=== PATIENT | female | born 1990 | race African-American/Black ===

== ENCOUNTER 2023-03-28 00:35 | Inpatient (IN) | payer OTHER ==
[~2023-03-28] VITALS: Ht 165.1 cm; Wt 88.0 kg
[2023-03-28] MEDS ORDERED: TERBUTALINE SULFATE 1 MG/ML VIAL SUBCUT ONE (01:30)
[2023-03-28] MEDS ORDERED: NALBUPHINE HCL 10 MG/ML AMP IVP PRN (01:30)
[2023-03-28 01:32] VITALS: BP_SYST 136
[2023-03-28] MEDS: LR 1,000 ML IV SCH ×4 (01:40→18:43)
[2023-03-28 01:57] LABS: BASOPHILS % (AUTO) 0.2 % (0.0-2.0); EOSINOPHILS % (AUTO) 0.4 % (0.0-4.0); HEMATOCRIT 25.5 % (36-48); HEMOGLOBIN 8.3 g/dL (12.0-16.0); LYMPHOCYTES # (AUTO) 1.5 K/uL (1.0-5.5); LYMPHOCYTES % (AUTO) 19.6 % (20.5-51.5); MEAN CORPUSCULAR HEMOGLOBIN 26 pg (27-31); MEAN CORPUSCULAR HGB CONC 33 % (32-36); MEAN CORPUSCULAR VOLUME 81 fL (79.0-98.0); MONOCYTES # (AUTO) 0.7 K/uL (0.0-1.0); MONOCYTES % (AUTO) 8.7 % (1.7-9.3); NEUTROPHILS # (AUTO) 5.6 K/uL (1.8-7.7); NEUTROPHILS % (AUTO) 71.1 % (40.0-70.0); PLATELET COUNT (AUTO) 149 K/uL (130-430); RED BLOOD CELL COUNT(AUTO) 3.13 MIL/uL (4.2-6.2); RED CELL DISTRIBUTION WIDTH 16.1 % (9.0-15.0); WHITE BLOOD COUNT (AUTO) 7.8 K/uL (4.8-10.8)
[2023-03-28] MEDS ORDERED: OXYTOCIN 10 UNIT/ML VIAL IM ONE (02:15)
[2023-03-28] MEDS: MORPHINE SULFATE 10 MG/ML VIAL IVP PRN ×3 (02:49→15:33)
[2023-03-28] MEDS: OXYTOCIN/0.9 % SODIUM CHLORIDE 1,000 ML IV SCH (03:24)
[2023-03-28] MEDS ORDERED: LIDOCAINE PF 1% 30ML(POUR BTL) INJ ONE (04:38)
[2023-03-28] MEDS ORDERED: LIGHT MINERAL OIL 10 ML VIAL MC ONE (04:38)
[2023-03-28] MEDS ORDERED: NALOXONE HCL 0.4 MG/ML AMP (NARCAN) ONE (04:38)
[2023-03-28] MEDS ORDERED: CALCIUM CARBONATE 500 MG/ TAB.CHEW PO PRN (23:00)
[2023-03-29] MEDS: LR 1,000 ML IV SCH ×2 (01:19→10:10)
[2023-03-29] MEDS: OXYTOCIN/0.9 % SODIUM CHLORIDE 1,000 ML IV SCH (06:02)
[2023-03-29] MEDS ORDERED: ONDANSETRON HCL 4 MG/2 ML VIAL IVP PRN (08:45)
[2023-03-29] MEDS: MORPHINE SULFATE 10 MG/ML VIAL IVP PRN ×3 (10:13→17:30)
[2023-03-29] MEDS ORDERED: LIGHT MINERAL OIL 10 ML VIAL MC ONE (18:24)
[2023-03-29] MEDS ORDERED: LIDOCAINE PF 1% 30ML(POUR BTL) INJ ONE (18:25)
[2023-03-29] MEDS ORDERED: OXYTOCIN 10 UNIT/ML VIAL ONE (18:25)
[2023-03-29] MEDS ORDERED: METHYLERGONOVINE MALEATE 0.2 MG/ML AMP IM ONE (18:35)
[2023-03-29] MEDS ORDERED: METHYLERGONOVINE MALEATE 0.2 MG/ML AMP ONE ×2 (18:35→18:41)
[2023-03-29] MEDS ORDERED: HEMABATE 250MCG/ML VIAL AMP IM ONE (18:41)
[2023-03-29] MEDS ORDERED: IBUPROFEN 600 MG TABLET ONE (23:38)
[2023-03-29] MEDS: IBUPROFEN 600 MG TABLET PO SCH (23:40)
[2023-03-29] MEDS ORDERED: DERMOPLAST SPRAY TP PRN (23:45)
[2023-03-29] MEDS ORDERED: WITCH HAZEL LEAF 1 MED.PAD MED.PAD TP PRN (23:45)
[2023-03-29] MEDS ORDERED: OXYCODONE/ACETAMINOPHEN 5-325 TABLET PO PRN ×2 (23:45)
[2023-03-29] MEDS ORDERED: OXYTOCIN/0.9 % SODIUM CHLORIDE 1,000 ML IV ONE (23:45)
[2023-03-29] MEDS ORDERED: LANOLIN 7 GM OINT. TP PRN (23:45)
[2023-03-29] MEDS ORDERED: OXYTOCIN/0.9 % SODIUM CHLORIDE 1,000 ML IV SCH (23:45)
[2023-03-29] MEDS ORDERED: HYDROCORTISONE 0.5% CREAM 28.4 GM CREAM.GM. TP PRN (23:45)
[2023-03-29] MEDS ORDERED: ANUSOL 1 EA SUPP.RECT (PREPARATION H) RC PRN (23:45)
[2023-03-29] MEDS ORDERED: HYDROcodone/ACETAMIN 5-325 MG TAB (NORCO/ VICODIN) PO PRN (23:45)
[2023-03-30] MEDS: IBUPROFEN 600 MG TABLET PO SCH ×3 (06:08→17:39)
[2023-03-30 07:16] LABS: BASOPHILS % (AUTO) 0.2 % (0.0-2.0); EOSINOPHILS # (AUTO) 0.1 K/uL (0.0-0.4); EOSINOPHILS % (AUTO) 0.8 % (0.0-4.0); HEMATOCRIT 26.9 % (36-48); HEMOGLOBIN 8.8 g/dL (12.0-16.0); LYMPHOCYTES # (AUTO) 1.8 K/uL (1.0-5.5); LYMPHOCYTES % (AUTO) 20.9 % (20.5-51.5); MEAN CORPUSCULAR HEMOGLOBIN 27 pg (27-31); MEAN CORPUSCULAR HGB CONC 33 % (32-36); MEAN CORPUSCULAR VOLUME 83 fL (79.0-98.0); MONOCYTES # (AUTO) 0.8 K/uL (0.0-1.0); MONOCYTES % (AUTO) 9.3 % (1.7-9.3); NEUTROPHILS # (AUTO) 5.9 K/uL (1.8-7.7); NEUTROPHILS % (AUTO) 68.8 % (40.0-70.0); PLATELET COUNT (AUTO) 167 K/uL (130-430); RED BLOOD CELL COUNT(AUTO) 3.25 MIL/uL (4.2-6.2); RED CELL DISTRIBUTION WIDTH 16.8 % (9.0-15.0); WHITE BLOOD COUNT (AUTO) 8.5 K/uL (4.8-10.8)
[2023-03-30] MEDS: DOCUSATE SODIUM 100 MG CAPSULE PO SCH (08:40)
[2023-03-30] MEDS ORDERED: SENNOSIDES/DOCUSATE SODIUM 1 TAB TABLET(SENOKOT-S) PO SCH (21:00)
[2023-03-31] MEDS: IBUPROFEN 600 MG TABLET PO SCH ×2 (05:34)
[2023-03-31] MEDS: DOCUSATE SODIUM 100 MG CAPSULE PO SCH (08:55)
== END 2023-03-31 13:40 | disposition home or self-care (01) | DRG 560 ==
LOC: SPU 00:35
PROVIDERS: ADMIT Obstetrics & Gynecology; ATTEND Obstetrics & Gynecology
PROC: 10E0XZZ Delivery of Products of Conception, External Approach (ICD-10-PCS; principal; 2023-03-29)
DX: O69.81X0 Labor and delivery complicated by cord around neck, without compression, not applicable or unspecified (principal); Z37.0 Single live birth; Z3A.39 39 weeks gestation of pregnancy
CPT/HCPCS: 36415; 81002; 85018; 85025; 86592; 86870; 86886; 86900; 86901; 94760; J2001; J2210; J2270; J2310; J2590; J7120